=== PATIENT | male | born 1975 | race Caucasian/White ===

== ENCOUNTER → 2018-03-05 10:25 | Outpatient (CLI) | payer OTHER, SELFPAY ==
--- NOTE | 2018-03-05 10:27 | US_ITS ---
STUDY: ABDOMINAL ULTRASOUND REASON FOR EXAM: Male, 42 years old. Right flank pain. TECHNIQUE: Transabdominal ultrasound was performed with real-time and static alfonso scale imaging. TECHNICAL QUALITY: Adequate. COMPARISON: None. FINDINGS: Liver: The liver measures 18.1 cm. There is increased echogenicity consistent with fatty infiltration. The bile ducts are within normal limits. There is hepatic color flow. The direction of portal flow is hepatopetal. There is no demonstrated mass lesion. Portal vein measurement: Gallbladder: Normal distended gallbladder. The gallbladder wall measures 3.0 mm. There is a negative sonographic Robles's sign. There is no pericholecystic fluid. There are no gallstones. Common Bile Duct (C.B.D.): The common bile duct measures 3.0 mm. Pancreas: Normal size of the head, body and tail of the pancreas. There is normal echogenicity of the pancreas. There is no demonstrated pancreatic mass or cyst. Spleen: Normal size of the spleen. The spleen measures 11.3 cm x 4.7 cm x 5.3 cm. Right Kidney: Normal size of the right kidney. The right kidney measures 14.8 cm x 6.2 cm x 6.4 cm. Normal renal cortex. The right cortex measures 2.4 cm. There is no demonstrated renal mass or cyst. There is no right hydronephrosis. Left Kidney: The left kidney is not visualized due to dilatation. Aorta: Unremarkable I.V.C.: The IVC is patent. There is no ascites. The bladder is unremarkable. US/Abdomen Complete IMPRESSION: Fatty infiltration of the liver. Status post left nephrectomy. Electronically Signed: Devante Tapia MD at 14:48 EDT Tel [phone], Service support ,
== END ==
PROVIDERS: Family Provider Internal Medicine; PCP Internal Medicine; Visit Provider Nurse Practitioner
DX: M54.9 Dorsalgia, unspecified (principal)
CPT/HCPCS: 76700

== ENCOUNTER 2018-06-29 17:15 | Emergency (ER) | payer OTHER, SELFPAY ==
[2018-06-29 17:16] VITALS: BP 149/105; PULSE 79; RESP 16; TEMP 36.4; O2SAT 98; BMI 25.2
--- NOTE | 2018-06-29 17:42 | ED.VISSUMM ---
- ER Visit Summary Date of Service: 06/29/18 Chief Complaint: Right small finger laceration History of Present Illness: The patient is a 42 M past medical history of hypertension and depression. He also previously donated a kidney to his father. Patient states within the last 1-2 hours he was open his thermos and the lid lacerated his right small finger. He states his tetanus is up-to-date. He is right-hand dominant. Denies other complaints. Physical Examination: Well-appearing middle-age male. Vital signs are stable and afebrile. H EENT exam unremarkable. Neck nontender. Lungs clear to auscultation. Heart regular rhythm no murmur. Abdomen soft nontender. He is moving all 4 extremities. Neurovascularly intact. Specifically the right small finger on the dorsum of the PIP joint there is a flap laceration. Mild oozing of blood. Finger appears to be neurovascularly intact with normal cap refill and touch sensation distally. He has full flexion-extension against resistance of the right small finger. There is no gross bony deformity. No foreign body. No signs of infection. Test Results: None Emergency Department Course and Treatment: Right small finger flap laceration repair. Digital block performed using lidocaine. Once proper anesthetic was obtained the wound was cleaned using Shur-Clens copiously irrigated and explored. Closed using simple interrupted 4-0 x 4 Ethilon sutures. Proper hemostasis and wound closure was obtained. Patient tolerated procedure well. Bacitracin and bandage was applied. Treatment Plan: Wound care. Suture removal in 10 days. Return if any signs of infection or problems. Disposition: Discharged Impression: Right small finger flap laceration with ER repair 2.5 cm Digital nerve block This note was generated with [employer] dictation software. It may contain incorrect words, spelling, and punctuation that were not noted in review of the chart prior to signing ED Disposition - Plan for ED Patient: Disposition: Home or Assisted Living Chief Complaint: Laceration Instructions: ED Laceration Hand Referrals: Svetlana Neri DO [STAFF PHYSICIAN] - 10 Day for suture removal Additional Instructions: Keep the wound dry and clean. Apply antibiotic ointment daily. Stitches out in 10 days. Return if any signs of infection.
--- NOTE | 2018-06-29 17:45 | ED.DEP ---
ED Disposition - Plan for ED Patient: Disposition: Home or Assisted Living Chief Complaint: Laceration Instructions: ED Laceration Hand Referrals: Svetlana Neri DO [Primary Care Provider] - 10 Day for suture removal Additional Instructions: Keep the wound dry and clean. Apply antibiotic ointment daily. Stitches out in 10 days. Return if any signs of infection.
--- NOTE | 2018-06-29 20:18 | ED.DEP ---
ED Disposition - Plan for ED Patient: Disposition: Home or Assisted Living Chief Complaint: Laceration Instructions: ED Laceration Hand Referrals: Svetlana Neri DO [STAFF PHYSICIAN] - 10 Day for suture removal Additional Instructions: Keep the wound dry and clean. Apply antibiotic ointment daily. Stitches out in 10 days. Return if any signs of infection.
== END 2018-06-29 20:28 | disposition home or self-care (01) ==
PROVIDERS: Emergency Provider Emergency Medicine; Family Provider Nurse Practitioner; PCP Nurse Practitioner
DX: S61.216A Laceration without foreign body of right little finger without damage to nail, initial encounter (principal); W26.8XXA Contact with other sharp object(s), not elsewhere classified, initial encounter; Y93.9 Activity, unspecified; Y92.89 Other specified places as the place of occurrence of the external cause; Y99.9 Unspecified external cause status; I10 Essential (primary) hypertension
CPT/HCPCS: 12001; 99284

== ENCOUNTER 2019-05-29 21:45 | Emergency (ER) | payer OTHER, SELFPAY ==
[2019-05-29 21:46] VITALS: BP 150/91; PULSE 96; RESP 16; TEMP 36.6; O2SAT 98; BMI 24.5
--- NOTE | 2019-05-29 22:09 | ED.VIS.UPPEX ---
History of Present Illness Chief Complaint: Upper Extremity Injury Informant: Patient Occurred: Today Onset: Today Context: - - awoke w/ sx 1-2 hrs ago Timing: Continuous Quality of Pain: Aching Location: points to entire left shoulder Current Severity: Severe Maximum Severity: Severe Worsened by: movement in any direction Relieved by: remaining still w/ arm at side Associated Symptoms: Loss of Funtion. Negative for: Parasthesia, Weakness Narrative: Patient states he was drinking heavily today and took a nap, waking up tonight with severe left shoulder pain. When asked if he fell or injured himself earlier he states I have no idea I was so drunk. He denies any numbness into his fingers or pain elsewhere. He is healthy otherwise. Past Medical History - Allergies and Home Meds Allergies/Adverse Reactions: Allergies No Known Allergies Allergy (Verified 05/29/19 21:46) Primary Care Physician: Renard Hill MD [STAFF PHYSICIAN] - (1-2 weeks if not improved) Past Medical History: None Surgical History: no surgical history Lives: With Family Smoking Status: Unknown if ever smoked Alcohol: Occasional Review of Systems Cardiovascular: Denies: Chest pain, Palpitations Respiratory: Denies: Dyspnea, Cough Gastrointestinal: Denies: Abdominal pain, Nausea, Vomiting Musculoskeletal: Reports: Extremity Pain. Denies: Swelling Neurological: Denies: Weakness, Numbness Physical Exam Vital Signs/Narrative: Vital Signs Temp Pulse Resp BP Pulse Ox 05/29/19 21:46 97.9 F 96 16 150/91 H 98 General: Well nourished, Well developed Head: Normocephalic, Atraumatic ENT: No Trauma, Moist Mucous Membranes Neck: Nontender, Full ROM Back: Nontender. Negative for: Spinal Tenderness Extremeties: Good short arc range of motion with left shoulder, if he flexes his upper arm forward, he has to stop at around 30 degrees, he states if I hold his arm there for him, the pain is much less than if he holds it there himself. The only area of tenderness is at the AC joint. There is no deformity. No subacromial or anterior bicipital head tenderness. Nontender at the scapular spine. No asymmetry when compared with the right shoulder, he does not appear grossly dislocated. No tenderness in the proximal humerus. Skin: Normal color, No rash, No Trauma Neurological: Alert, Oriented x3, Cranial nerves II-XII grossly intact, Normal Strength, Normal Sensation Psychological: Normal affect, Normal Mood Diagnostic/Tx/Re-eval Clinical Impression(s) from Imaging Studies Shoulder X-Ray 05/29/19 22:23 IMPRESSION: A normal left glenohumeral joint. Osteophytic spurring on the undersurface of the left acromioclavicular joint of the left shoulder. at 2249 Reported and signed by: Percy Harman MD Electronically Signed: Percy Harman MD at 22:47 EDT Tel , Service support , - Medical Decision Making Shoulder x-rays do not show any acute abnormality. He is not dislocated nor does he have any radiographically visible fracture. Since his point of maximal tenderness is clearly at the AC joint and it appears unremarkable, I suspect he probably injured it and sprained it. Treatment is supportive care with a sling, anti-inflammatories and follow-up. He was given anti-inflammatories and a sling here as well as a dose of Ultram, I will give him a prescription for both medicines and follow-up. OARRS checked and negative. ED Disposition - Plan for ED Patient: Disposition: Home or Assisted Living Diagnosis: Sprain of left acromioclavicular joint, initial encounter Instructions: Ac Joint Sprain, Sling Prescriptions: Naproxen [Naprosyn] 500 mg PO BID PRN #20 tab Prescription Printed traMADol [Ultram] 50 mg PO Q4H PRN PRN 2 Days #10 tab PRN Reason: Pain Prescription Printed Referrals: Renard Hill MD [STAFF PHYSICIAN] - (1-2 weeks if not improved)
--- NOTE | 2019-05-29 22:23 | RAD_ITS ---
HISTORY: PAIN, NKI Exam:Left Shoulder COMPARISON: None FINDINGS: # of images incl. paperwork: 4 XR Shoulder for Views: The humeral head is well-positioned within the glenoid fossa. No fracture or subluxation. The acromioclavicular joint is arthritic with osteophytic spurring extending inferior to be lateral aspect of the clavicle and the medial aspect of the acromion. The adjacent chest is unremarkable. RAD/Shoulder min 2 Views IMPRESSION: A normal left glenohumeral joint. Osteophytic spurring on the undersurface of the left acromioclavicular joint of the left shoulder. at 2885 Reported and signed by: Percy Harman MD Electronically Signed: Percy Harman MD at 22:47 EDT Tel , Service support ,
[2019-05-29] MEDS: Ketorolac 60 MG/2 ML Vial IM (22:25)
[2019-05-29] MEDS: traMADol 50 MG Tablet PO (22:25)
[2019-05-29 23:14] VITALS: BP 134/94; PULSE 90; RESP 15; O2SAT 96
== END 2019-05-29 23:15 | disposition home or self-care (01) ==
PROVIDERS: Emergency Provider Emergency Medicine; Family Provider Nurse Practitioner; PCP Nurse Practitioner
DX: S43.52XA Sprain of left acromioclavicular joint, initial encounter (principal); X58.XXXA Exposure to other specified factors, initial encounter; Y92.9 Unspecified place or not applicable; Y99.9 Unspecified external cause status; F10.10 Alcohol abuse, uncomplicated; Y90.9 Presence of alcohol in blood, level not specified
CPT/HCPCS: 73030; 99283

== ENCOUNTER 2021-12-05 16:06 | Outpatient (CLI) | payer BC, SELFPAY ==
[2021-12-05 18:35] LABS: AST(SGOT) 22 U/L (15-37); Alanine Aminotransfer ALT/SGPT 36 U/L (16-61); Albumin, Serum 3.9 g/dL (3.2-5.0); Alkaline Phosphatase 99 U/L (45-117); Anion Gap 7 (5-15); BUN 12 mg/dL (7-18); BUN/Creat Ratio 13.9 RATIO (10-20); Calcium,Total 9.5 mg/dL (8.5-10.1); Chloride 103 mmol/L (98-107); Creatinine, Serum 0.86 mg/dL (0.70-1.30); EST Glomerular Filtration Rate 101 mL/min (>60); Est Glom Filt Rate - Afr Amer 122 mL/min (>60); Globulin 3.8 g/dL (2.2-4.2); Glucose 77 mg/dL (74-106); Potassium 3.3 mmol/L (3.5-5.1); Protein, Total 7.7 g/dL (6.4-8.2); Sodium Level 139 mmol/L (136-145)
== END 2021-12-05 23:59 | disposition short-term general hospital (02) ==
LOC: MFPLAB 16:10
PROVIDERS: PCP Nurse Practitioner; Referring Provider Nurse Practitioner; Visit Provider Physician Assistant
DX: L08.9 Local infection of the skin and subcutaneous tissue, unspecified (principal)
CPT/HCPCS: 36415; 80053

== ENCOUNTER 2023-03-02 14:12 | Observation (INO) | payer BC, SELFPAY ==
[2023-03-02] VITALS (10 sets, daily range): BP systolic 152–184; BP diastolic 101–124; PULSE 72–94; RESP 14–17; TEMP 36.1–36.8; O2SAT 95–99; BMI 25.7; BMI 25.9; BMI 24.6
--- NOTE | 2023-03-02 14:18 | ED.RN ---
DISCUSSED PT WITH DR. DEUTSCH.
--- NOTE | 2023-03-02 14:29 | CT_ITS ---
STUDY: CTA HEAD AND NECK WITH CONTRAST REASON FOR EXAM: Male, 47 years old. Neuro deficit, acute, stroke suspected RADIATION DOSAGE (If Supplied By Facility): CTDIvol = ( 27.89 ) mGy, DLP = ( 1482.2 ) mGycm TECHNIQUE: CT angiography was performed with a multi-detector CT scanner. Data acquisition was obtained from the skull base through the vertex following intravenous administration of IV 100mL Isovue-370. MIP images were reconstructed from the axial data set. Post-processing of the angiographic images was performed, with multiplanar reformation and 3D reconstruction. Individualized dose optimization techniques were used for this CT. COMPARISON: CT of the head, March 02, 2023 FINDINGS: Normal bilateral petrous carotid arteries. Normal right cavernous carotid artery with a normal supraclinoid bifurcation. Normal left cavernous carotid artery with a normal supraclinoid bifurcation. Normal right A1 segments of the anterior cerebral artery. Normal left A1 segments of the anterior cerebral artery. Normal intact anterior communicating artery (ACOM). Normal bilateral A2 segments of the anterior cerebral arteries. Normal right M1 and M2 segments of the middle cerebral arteries, with a normal M1 bifurcation. Normal left M1 and M2 segments of the middle cerebral arteries, with a normal M1 bifurcation. Normal right posterior communicating artery (PCOM). Normal left posterior communicating artery (PCOM). Normal bilateral vertebral arteries. Normal basilar artery with a normal basilar bifurcation. The visualized bilateral superior cerebellar (SCA) arteries are normal. Normal bilateral P1, P2 and visualized P3 segments of the posterior cerebral arteries. There is no demonstrated aneurysm of the [place] of [place]. There is no demonstrated abnormality of the visualized brain. AORTIC ARCH: Normal visualized aortic arch. Normal origins of the brachiocephalic, left common carotid, and left subclavian arteries. RIGHT CAROTID ARTERIES: Normal right common carotid artery (CCA). Normal right common carotid bulb. Normal origin of the right internal carotid (ICA) artery without a hemodynamically significant stenosis. Normal visualized cervical portion of the right internal carotid artery. Normal origin of the right external carotid artery (ECA). LEFT CAROTID ARTERIES: Normal left common carotid artery (CCA). Normal left common carotid bulb. Normal origin of the left internal carotid (ICA) artery without a hemodynamically significant stenosis. Normal visualized cervical portion of the left internal carotid artery. Normal origin of the left external carotid artery (ECA). VERTEBRAL ARTERIES: Normal bilateral vertebral arteries. IMPRESSION: Normal CTA Head and neck with contrast. N.B. : The above Results were Read Back by Abdi Burkett DO to keshav Serrano MD, and understanding confirmed on 03/02/2023 16:42:29 (ET). Electronically Signed: Abdi Burkett DO at 16:28 EDT Reading Location ID and State: [facility] / [employer] Tel [phone], Service support , STUDY: CT HEAD STROKE PROTOCOL W/O CONTRAST INJECTION REASON FOR EXAM: Male, 47 years old. Neuro deficit, acute, stroke suspected TECHNIQUE: Transaxial CT imaging of the brain was performed without administration of intravenous contrast material. Individualized dose optimization techniques were used for this CT. COMPARISON: CTA of the head and neck, March 02, 2023. FINDINGS: Normal soft tissue structures. Normal calvarium. Normal size ventricles and extra-axial spaces for the patient''s age. Normal white matter tracts of the cerebral hemispheres. Normal basal ganglia and thalami. Normal brainstem. Normal cerebellum. There is no intracranial hemorrhage. There are no findings of an acute ischemic infarction. Normal visualized paranasal sinuses. ASPECT score: 10 CT/STROKE CTA Head AND Neck W/Con IMPRESSION: Normal unenhanced CT scan of the brain. N.B. : The above Results were Read Back by Abdi Burkett DO to keshav Serrano MD, and understanding confirmed on 03/02/2023 16:42:29 (ET). Electronically Signed: Abdi Burkett DO at 16:44 EDT Reading Location ID and State: [facility] / [place] Tel [phone], Service support ,
--- NOTE | 2023-03-02 14:29 | EKG12_ITS ---
Test Reason : NEURO Blood Pressure : / mmHG Vent. Rate : 080 BPM Atrial Rate : 080 BPM P-R Int : 156 ms QRS Dur : 092 ms QT Int : 356 ms P-R-T Axes : 035 021 022 degrees QTc Int : 410 ms Normal sinus rhythm Normal ECG Confirmed by CHANNING SKELTON, MARQUES ([id number]), society editor SRINIVAS KEEN ([id number]) on 03/04/2023 9:54:09 AM Referred By: Confirmed By:ROSELYN SNELL MD
--- NOTE | 2023-03-02 14:31 | ED.VIS.STROK ---
HPI History of Present Illness Chief Complaint: Neuro S/Sx Narrative Narrative: 47-year-old male presenting with weakness in the right leg which started yesterday. He was about 1700. Patient states he came home from doing his laundry and noticed he was having trouble walking. He states he has having to kick his foot forward to walk. He did not fall. Denies any trauma. He has no numbness or tingling. He is having trouble dorsiflexing his right foot plantarflexion is okay. Patient has a history of hypertension he has not been on his valsartan for a long time. His blood pressure is elevated. He thinks this might have something to do with that as well. He denies headache, blurred vision, slurred speech, facial droop, paresthesias. He is not having chest pain or shortness of breath. PFSH PFS Medical History (Updated 03/02/23 @ 17:[address] Kait Kovacs MD) Anxiety and depression ETOH abuse HTN (hypertension) Home Medications valsartan 160 mg tablet 320 mg PO DAILY 06/29/18 [History Last Taken 09/30/22] amlodipine 10 mg tablet 10 mg PO DAILY HTN 03/02/23 [History Last Taken 09/30/22] Allergy/AdvReac Type Severity Reaction Status Date / Time No Known Allergies Allergy Verified 03/02/23 14:15 Family History (Updated 03/02/23 @ 17:[address] Kait Kovacs MD) Father Kidney disease Hypertension CAD (coronary artery disease) Mother CAD (coronary artery disease) Hypertension Diabetes Surgical History H/O kidney removal Social History (Updated 03/02/23 @ 17:[address] Kait Kovacs MD) Smoking Status: Never smoker alcohol intake: current alcohol intake frequency: 3 or more drinks per day Alcohol type: beer details: 6-8 beers daily. substance use type: does not use ROS ROS ED Constitutional Constitutional ED: Denies chills or fever(s) Eyes Eyes: Denies change in vision or diplopia ENT ENT ED: Denies rhinorrhea or sore throat Cardiovascular Cardiovascular: Denies chest pain or palpitations Respiratory/Chest Respiratory/Chest: Denies cough or dyspnea Gastrointestinal Gastrointestinal: Denies abdominal pain Genitourinary Genitourinary ED: Denies dysuria or hematuria Musculoskeletal Musculoskeletal: Denies arthralgias or myalgias Integumentary Denies abscess Neurologic Neurologic: Reports other Details: Right leg weakness ; Denies headache(s) or paresthesias Psychiatric Psychiatric: Denies anxiety or depression Endocrine Endocrinology: Denies polydipsia or polyphagia EXAM Physical Exam Const Vital Signs: 03/02/23 14:16 03/02/23 14:32 03/02/23 14:32 Temperature 97 F L Temperature Source Temporal Pulse Rate 94 Respiratory Rate 14 Respiratory Effort Normal Non-Labored Blood Pressure 184/124 H Blood Pressure Mean 144 Pulse Ox 96 Oxygen Delivery Method Room Air Room Air 03/02/23 14:45 03/02/23 14:59 03/02/23 15:29 Temperature Temperature Source Pulse Rate 87 79 Respiratory Rate 15 16 Respiratory Effort Blood Pressure 165/118 H 161/106 H 161/106 H Blood Pressure Mean 133 124 124 Pulse Ox 95 95 Oxygen Delivery Method Room Air Room Air 03/02/23 15:59 03/02/23 16:12 Temperature Temperature Source Pulse Rate 78 78 Respiratory Rate 16 14 Respiratory Effort Blood Pressure 153/112 H 160/114 H Blood Pressure Mean 125 129 Pulse Ox 96 97 Oxygen Delivery Method Room Air Room Air Positive well nourished General Appearance ED: NAD HEENT Reports moist mucous membranes Eyes PERRL and EOMs intact bilaterally Chest Wall inspection of chest normal and palpation of chest normal Resp normal respiratory effort and clear to auscultation bilaterally Auscultation: Negative for rales, rhonchi or wheezes GI normal to inspection, nondistended, normoactive bowel sounds Neuro oriented x3 and CN's II-XII intact bilaterally Fritz Coma Scale: document GCS findings Spontaneous Obeys Commands Oriented 15 Sensorium / Orientation: alert Motor Exam: strength 5/5 throughout NIHSS NIHSS Initial: 1a Level of Consciousness: 0 1b LOC Questions (Score 2 if aphasic/stupor): 0 1c LOC Commands (Only score 1st attempt): 0 2 Best Gaze (If aphasic, use reflexive mvmts.): 0 3 Visual: 0 4 Facial Palsy: 0 5 Motor Arm Right (UN = amputation/fusion): 0 5 Motor Arm Left: 0 6 Motor Leg Right: 0 6 Motor Leg Left: 0 7 Limb ataxia (Only + if out of proportion): 0 8 Sensory (Aphasia/stupor=0 or 1, coma=2): 0 9 Best Language: 0 10 Dysarthria (mute, coma=2, intubated=UN): 0 11 Extinction and Inattention (only scored if +): 0 Total Score: 0 MDM MDM MDM Narrative Medical decision making narrative: 47-year-old male with leg weakness. On exam his only weakness is in dorsiflexion of the right foot. Plantarflexion of both feet is symmetric. He has no drift. Otherwise motor and sensation are intact. No facial droop. Slurred speech. He is alert and awake and not confused. He is noted to be hypertensive. He states he has not been on his valsartan for a long time. He does not have a headache, visual changes. Differential at this point includes stroke, intracranial hemorrhage, hypertensive emergency/urgency, foot drop. Onset was 5pm yesterday she was outside the window for tPA. NIH stroke scale score of 0. CBC to assess white blood cell count, hemoglobin, platelets, differential. Patient studies as well. BMP to assess renal function, electrolytes, glucose, anion gap. EKG and high-sensitivity troponin will be added as well. EKG on my interpretation shows a sinus rhythm at 80 bpm without sign of ischemic change or dysrhythmia. CBC unremarkable. Coagulation studies unremarkable. BMP shows slight hyponatremia with sodium 128. Potassium slightly low at 3.4. Renal function is normal. CT brain and CTA negative for acute infarct. No LVO. Chest x-ray on my interpretation shows no acute cardiopulmonary process. Radiologist are present and agrees. Given patient's symptoms I discussed with the hospitalist for admission. Impression: 1. Strokelike symptom Lab Data Labs: Laboratory Results - last 24 hr 03/02/23 03/02/23 03/02/23 14:30 14:30 14:30 WBC 8.9 RBC 4.53 L Hgb 14.1 Hct 40.6 MCV 89.6 MCH 31.1 MCHC 34.7 RDW Std Deviation 37.8 RDW Coeff of Tima 11.6 Plt Count 296 MPV 9.4 Immature Gran % (Auto) 1.800 H Neut % (Auto) 73.1 H Lymph % (Auto) 14.3 L Sequoyah % (Auto) 9.3 Eos % (Auto) 0.8 Baso % (Auto) 0.7 Absolute Neuts (auto) 6.5 Absolute Lymphs (auto) 1.28 Nucleated RBC % 0 PT 13.2 INR 1.0 APTT 30.8 Sodium 128 L Potassium 3.4 L Chloride 95 L Carbon Dioxide 26.0 Anion Gap 7 BUN 8 Creatinine 0.84 Estim Creat Clear Calc 119.33 Est GFR (MDRD) Af Amer 126 Est GFR (MDRD) Non-Af 104 BUN/Creatinine Ratio 9.5 L Glucose 100 Calcium 9.0 Troponin I High Sens 5 Radiography Diagnostic Testing: Clinical Impression(s) from Imaging Studies Head/Neck CTA 03/02/23 14:29 IMPRESSION: Normal unenhanced CT scan of the brain. N.B. : The above Results were Read Back by Abdi Burkett DO to keshav Serrano MD, and understanding confirmed on 03/02/2023 16:42:29 (ET). Electronically Signed: Abdi Burkett DO at 16:44 EDT Reading Location ID and State: [employer] / [place] Tel [phone], Service support , ADDENDUM: 03/02/23 1651 IMPRESSION: Normal unenhanced CT scan of the brain. Electronically Signed: Abdi Burkett DO at 16:43 EDT Reading Location ID and State: [employer] / [place] Tel [phone], Service support , N.B. : The above Results were Read Back by Abdi Burkett DO to keshav Serrano MD, and understanding confirmed on 03/02/2023 16:42:29 (ET). ADDENDUM: 03/02/23 1652 IMPRESSION: Normal unenhanced CT scan of the brain. N.B. : The above Results were Read Back by Abdi Burkett DO to keshav Serrano MD, and understanding confirmed on 03/02/2023 16:42:29 (ET). Electronically Signed: Abdi Burkett DO at 16:44 EDT Reading Location ID and State: [employer] / [employer] Tel [phone], Service support , Chest X-Ray 03/02/23 15:30 IMPRESSION: Hyperinflation. No acute abnormality is seen. Electronically Signed: Devante Tapia MD at 15:46 EDT , Discharge Plan Disposition Disposition: Acute Care Hospital [facility] Discharge Date/Time: 03/02/23 17:47
--- NOTE | 2023-03-02 14:36 | ED.RN ---
PER DR GIBBS, NO STROKE ALERT AT THIS TIME
[2023-03-02 14:49] LABS: Absolute Lymphocyte Count 1.28 X10^3/uL (0.83-4.51); Absolute Neutrophil Count 6.5 X10^3/uL (2.0-7.7); Basophil# 0.06 X10^3/uL; Basophil% 0.7 % (0-1); Eosinophil# 0.07 X10^3/uL; Eosinophils% 0.8 % (0-5); Hematocrit 40.6 % (40-54); Hemoglobin 14.1 g/dL (13.0-16.5); Lymphocyte # 1.28 X10^3/ul (0.83-4.51); Lymphocyte % 14.3 % (19-41); Mean Corp Hgb Conc 34.7 g/dL (32-36); Mean Corpuscular Hgb 31.1 pg (27.0-32.0); Mean Corpuscular Volume 89.6 fL (80-94); Mean Platelet Vol. 9.4 fl (6.2-12.0); Monocyte# 0.83 X10^3/uL; Monocyte% 9.3 % (0-10); NRBC Flagged by Analyzer 0 % (0-5); Neutrophil # 6.53 X10^3/uL (2.7-7.7); Neutrophil % 73.1 % (47-70); Platelet Count 296 K/mm3 (150-450); RBC Distribution Width CV 11.6 % (11.6-14.6); RBC Distribution Width SD 37.8 fl (35.1-43.9); Red Blood Count 4.53 M/mm3 (4.6-6.2); White Blood Count 8.9 K/mm3 (4.4-11.0)
[2023-03-02 15:00] LABS: Partial Thromboplast Time 30.8 Seconds (24.1-36.2); Prothrombin Time (Protime)PT. 13.2 SECONDS (11.7-14.9)
[2023-03-02 15:04] LABS: Anion Gap 7 (5-15); BUN 8 mg/dL (7-18); BUN/Creat Ratio 9.5 RATIO (10-20); Chloride 95 mmol/L (98-107); Creatinine, Serum 0.84 mg/dL (0.70-1.30); EST Glomerular Filtration Rate 104 mL/min (>60); Est Glom Filt Rate - Afr Amer 126 mL/min (>60); Estimated Creatinine Clearance 119.33 ml/min; Glucose 100 mg/dL (74-106); Potassium 3.4 mmol/L (3.5-5.1); Sodium Level 128 mmol/L (136-145); Troponin-I HS 5 pg/mL (3.0-78.0)
--- NOTE | 2023-03-02 15:30 | RAD_ITS ---
STUDY: X-RAY CHEST REASON FOR EXAM: Male, 47 years old. Neuro deficit, acute, stroke suspected TECHNIQUE: Single AP portable view of the chest. COMPARISON: None. FINDINGS: EKG electrodes are seen. Hyperinflation. Scattered calcified granulomas. The lungs are clear. There is no demonstrated pleural abnormality. Normal size heart. Normal mediastinum and rachel. Normal visualized pulmonary arteries. Normal visualized aortic arch and descending thoracic aorta. Normal visualized thoracic spine. Normal visualized ribs, clavicles, and shoulders. There is no demonstrated abnormality of the visualized soft tissue structures of the upper abdomen. RAD/Chest 1 View IMPRESSION: Hyperinflation. No acute abnormality is seen. Electronically Signed: Devante Tapia MD at 15:46 EDT ,
--- NOTE | 2023-03-02 17:03 | HP.PCM_ITS ---
HPI - General General Date of Admission: 03/02/23 Date of Service: 03/02/23 Chief Complaint: Transient RLE weakness, debility. HPI Narrative The patient is a 47 y/o M w/ PMHx: Hx single kidney s/p donation to his father, HTN, Depression and Anxiety, EtOH abuse who presents to the [facility] ED on 03/02/23 with history of onset at approximately 5 PM on day prior to day of presentation difficulty utilizing his right leg and reporting that he has to pick it up to get it to move although he reportedly ambulated himself into the ED and into triage without issue without complaints of paresthesias or other fical deficits prompting ED evaluation. In the ED NIH stroke scale 0 upon initial ED evaluation. Patient denies any associated headache or chest discomfort with his current presentation. He does report injuring his right leg 2 days prior, hi tting the anterior chin on a machine of note. Upon ED arrival he notes only residual R foot drop. Work-up in the ED included T97, heart rate 94, BP initially 184/124 with most recent repeat 153/112, respiratory rate 14, 96% on room air, CBC with WC 8.9, hemoglobin 14.1, platelet 296 with increased immature granulocytes, unremarkable coags, BMP with sodium 128, potassium 3.4, chloride 95, troponin 5, chest x-ray with hyperinflation with no acute cardiopulmonary findings, CT of the brain with no acute intracranial finding, CTA head and neck both unremarkable, EKG sinus rhythm with no acute evidence of ischemia. In the ED patient administered FS ASA. [facility] Medical History (Updated 03/02/23 @ 17:[address] Kait Kovacs MD) Anxiety and depression ETOH abuse HTN (hypertension) Home Medications valsartan 160 mg tablet 320 mg PO DAILY 06/29/18 [History Last Taken 09/30/22] amlodipine 10 mg tablet 10 mg PO DAILY HTN 03/02/23 [History Last Taken 09/30/22] Allergy/AdvReac Type Severity Reaction Status Date / Time No Known Allergies Allergy Verified 03/02/23 14:15 Family History (Updated 03/02/23 @ 17:[address] Kait Kovacs MD) Father Kidney disease Hypertension CAD (coronary artery disease) Mother CAD (coronary artery disease) Hypertension Diabetes Surgical History H/O kidney removal Social History (Updated 03/02/23 @ 17:[address] Kait Kovacs MD) Smoking Status: Never smoker alcohol intake: current alcohol intake frequency: 3 or more drinks per day Alcohol type: beer details: 6-8 beers daily. substance use type: does not use ROS ROS Narrative Admission Review of Systems: CONSTITUTIONAL: No weight loss, fever, chills, + weakness or fatigue. HEENT: Eyes: No visual loss, blurred vision, double vision or yellow sclerae. Ears, Nose, Throat: No hearing loss, sneezing, congestion, runny nose or sore th roat. SKIN: No rash or itching, lesions, wounds. CARDIOVASCULAR: No chest pain, chest pressure or chest discomfort, palpitations, edema, orthopnea, syncopal events. RESPIRATORY: No shortness of breath, cough or sputum, wheezing, hemoptysis. GASTROINTESTINAL: No anorexia, nausea, vomiting or diarrhea, abdominal pain, melena, BRBPR. GENITOURINARY: No dysuria, frequency, urgency or retention. NEUROLOGICAL: + RLE weakness-->foot drop right. No headache, dizziness, syncope, paralysis, ataxia, numbness or tingling in the extremities,change in bowel or bladder control, seizure. MUSCULOSKELETAL: + muscle, back pain, joint pain or stiffness. HEMATOLOGIC: No anemia, bleeding or bruising. LYMPHATICS: No enlarged nodes. No history of splenectomy. PSYCHIATRIC: + history of depression or anxiety. ENDOCRINOLOGIC: No reports of sweating, cold or heat intolerance. No polyuria or polydipsia. ALLERGIES: No history of asthma, hives, eczema or rhinitis. Vital Signs Vital Signs Vital Signs: 03/02/23 14:16 03/02/23 14:32 03/02/23 14:32 Temperature 97 F L Temperature Source Temporal Pulse Rate 94 Respiratory Rate 14 Respiratory Effort Normal Non-Labored Blood Pressure 184/124 H Blood Pressure Mean 144 Pulse Ox 96 Oxygen Delivery Method Room Air Room Air 03/02/23 14:45 03/02/23 14:59 03/02/23 15:29 Temperature Temperature Source Pulse Rate 87 79 Respiratory Rate 15 16 Respiratory Effort Blood Pressure 165/118 H 161/106 H 161/106 H Blood Pressure Mean 133 124 124 Pulse Ox 95 95 Oxygen Delivery Method Room Air Room Air 03/02/23 15:59 Temperature Temperature Source Pulse Rate 78 Respiratory Rate 16 Respiratory Effort Blood Pressure 153/112 H Blood Pressure Mean 125 Pulse Ox 96 Oxygen Delivery Method Room Air Weight Weight: 191 lb 2.252 oz Body Mass Index (BMI) 25.9 Physical Exam Narrative Physical Examination: General: Awake, alert, oriented x 3 and cooperative, seated upright in the ED bed in no apparent distress. Skin: Normal color, normal turgor, no icterus, no cyanosis. HEENT: AT/NC, EOMI, PERRLA, MMM, no carotid bruits or JVD noted. Lungs: CTA bilaterally, moderate effort, mild decrease BL bases, no rales, ronchi or wheezing. Heart: Regular rate and rhythm; no gallop, rub audible. Abdomen: Soft, NTTP, ND, normal BS, mild HM. Extremities: No cyanosis, clubbing, or edema, ongoing R foot drop/unable to dorsiflex. Neurological: Patient awake, alert, oriented as noted, cognitive function intact; pupils equally reactive to light and accommodation, cranial nerves grossly normal, moving all 4 extremities except ongoing R foot drop/unable to dorsiflex, sensation intake, no focal deficits otherwise, strength otherwise preserved, difficulty with HTS as expected RLE otherwise normal, FTN normal. Psychiatric: Affect appears normal, no acute evidence of depressive or anxiety f eelings. Results Lab / Micro Data Result Diagrams: 03/02/23 14:30 03/02/23 14:30 Labs: Laboratory Results - last 24 hr 03/02/23 14:30: WBC 8.9, RBC 4.53 L, Hgb 14.1, Hct 40.6, MCV 89.6, MCH 31.1, MCHC 34.7, RDW Std Deviation 37.8, RDW Coeff of Tima 11.6, Plt Count 296, MPV 9.4, Immature Gran % (Auto) 1.800 H, Neut % (Auto) 73.1 H, Lymph % (Auto) 14.3 L , [place] % (Auto) 9.3, Eos % (Auto) 0.8, Baso % (Auto) 0.7, Absolute Neuts (auto) 6.5, Absolute Lymphs (auto) 1.28, Nucleated RBC % 0 03/02/23 14:30: PT 13.2, INR 1.0, APTT 30.8 03/02/23 14:30: Sodium 128 L, Potassium 3.4 L, Chloride 95 L, Carbon Dioxide 26.0, Anion Gap 7, BUN 8, Creatinine 0.84, Estim Creat Clear Calc 119.33, Est GFR (MDRD) Af Amer 126, Est GFR (MDRD) Non-Af 104, BUN/Creatinine Ratio 9.5 L, Glucose 100, Calcium 9.0, Troponin I High Sens 5 Radiology Impression Head/Neck CTA 03/02/23 14:29 IMPRESSION: Normal unenhanced CT scan of the brain. N.B. : The above Results were Read Back by Abdi Burkett DO to keshav Serrano MD, and understanding confirmed on 03/02/2023 16:42:29 (ET). Electronically Signed: Abdi Burkett DO at 16:44 EDT Reading Location ID and State: [facility] / [place] Tel [phone], Service support , ADDENDUM: 03/02/23 1651 IMPRESSION: Normal unenhanced CT scan of the brain. Electronically Signed: Abdi Burkett DO at 16:43 EDT Reading Location ID and State: [employer] / [place] Tel [phone], Service support , N.B. : The above Results were Read Back by Abdi Burkett DO to keshav Serrano MD, and understanding confirmed on 03/02/2023 16:42:29 (ET). ADDENDUM: 03/02/23 1652 IMPRESSION: Normal unenhanced CT scan of the brain. N.B. : The above Results were Read Back by Abdi Burkett DO to keshav Serrano MD, and understanding confirmed on 03/02/2023 16:42:29 (ET). Electronically Signed: Abdi Burkett DO at 16:44 EDT Reading Location ID and State: [facility] / [place] Tel [phone], Service support , Chest X-Ray 03/02/23 15:30 IMPRESSION: Hyperinflation. No acute abnormality is seen. Electronically Signed: Devante Tapia MD at 15:46 EDT , Assessment & Plan Assessment/Plan (1) TIA (transient ischemic attack): PLAN: Plan The patient is a 47 y/o M w/ PMHx: Hx single kidney s/p donation to his father, HTN, Depression and Anxiety, ? EtOH abuse who presents to the [facility] ED on 03/02/23 with history of onset at approximately 5 PM on day prior to day of presentation difficulty utilizing his right leg and reporting that he has to pick it up to get it to move although he reportedly ambulated himself into the ED and into triage without issue. #1. Transient right lower extremity weakness with persistent issues dorsiflexion, lower suspicion for TIA/CVA, Suspect nerve damage with recent RLE Injury but still cannot explain worsened more pronounced initial description of R entire leg involvement: Will admit to PCU, will obtain MRI Brain with and without to be cautious given age and will also given foot drop residual obtain lumbar MRI, will obtain ECHO, PT/OT/Speech/Nutrition evaluation per protocol. Will allow permissive HTN, maintain on aspirin, add high-dose statin w/ AM FLP, fall precautions. TSH, magnesium, FLP, hemoglobin A1c requested. If no obvious findings on MRI would need to have PCP follow-up with potentially EMG and nerve conduction studies outpatient. #2. Hypokalemia: Admission K+ 3.4, magnesium also requested, supplementation given, repeat level in AM. #3. Hyponatremia, Suspected primarily secondary to EtOH abuse, although has been more normal range prior, possibly hypovolemic component: Admission sodium 128, prior baseline noted to be normal, will continue judicious hydration, obtain TSH, Osm, FeNa to further evaluation, repeat CMP in AM but again suspect EtOH related. #4. Hypertension, uncontrolled, off of his medication: BP uncontrolled upon presentation likely secondary to failure to continue to take his home valsartan regimen, temporarily holding home regimen given permissive hypertension as noted, parent agents per stroke protocol. #5. Anxiety and depression: We will continue patient on Wellbutrin regimen however would benefit from continued evaluation and therapy. #6. EtOH Abuse: Patient notes routine consumption of 6-8 beers per day. Will maintain on CIWA protocol, MVI, thiamine and folic acid. Patient notes intention of continued EtOH usage, magnesium and phosphorus levels requested. Case management consulted. #7. DVT protocol: Lovenox. #8. CODE STATUS: Full code. Admission Evaluation Time spent evaluating chart, patient history, patient evaluation, care planning and discussion with specialists: 60 minutes. Charges/Coding Visit Charges Inpatient E&M: 54308 Init Hosp L2
--- NOTE | 2023-03-02 17:17 | NURSING ---
PCU OBS WHITE STROKELINE SYMPTOMS
[2023-03-02] MEDS: Aspirin 325 MG Tablet PO (17:45)
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
[2023-03-02 17:52] LABS: AST(SGOT) 25 U/L (15-37); Alanine Aminotransfer ALT/SGPT 26 U/L (16-61); Albumin, Serum 3.8 g/dL (3.2-5.0); Alkaline Phosphatase 53 U/L (45-117); Bilirubin, Direct 0.15 mg/dL (0.00-0.30); Globulin 3.3 g/dL (2.2-4.2); Magnesium 1.4 mg/dL (1.6-2.6); Protein, Total 7.1 g/dL (6.4-8.2)
[2023-03-02] MEDS: Potassium Chloride Oral Tablet 20 MEQ 40 MEQ PO (18:27)
[2023-03-02] MEDS: 0.9% Normal Saline 1,000 ML 100 ML IV (18:29)
--- NOTE | 2023-03-02 18:43 | MRI_ITS ---
INDICATION: Right leg weakness and right footdrop EXAMINATION: MRI - MR Spine Lumbar W/O Contrast TECHNIQUE: Multiplanar and multisequence MR images of the lumbar spine. IV Contrast Dosage and Agent: None. COMPARISON: None. FINDINGS: VERTEBRAE: Vertebral body heights are preserved. No acute fracture or pathologic marrow replacement. VERTEBRAL ALIGNMENT: No spondylolisthesis. There is preservation of the normal lumbar lordosis. CORD: Normal position and signal intensity of the conus medullaris. L1/L2: Normal disc height and morphology. Normal spinal canal, lateral recesses and neuroforamina. L2/L3: Normal disc height and morphology. Normal spinal canal, lateral recesses and neuroforamina. L3/L4: Normal disc height and morphology. Normal spinal canal, lateral recesses and neuroforamina. L4/L5: Normal disc height, small high intensity zone in the posterior annulus. Normal spinal canal, lateral recesses and neuroforamina. L5/S1: Normal disc height and morphology. Normal spinal canal, lateral recesses and neuroforamina. SOFT TISSUES: Unremarkable. MRI/Spine Lumbar (Routine) IMPRESSION: Small radial annular tear at L4-5. No focal disc herniation or significant lumbar stenosis. Electronically Signed: Mal Sharma MD at 21:30 EDT ,
--- NOTE | 2023-03-02 19:13 | MRI_ITS ---
STUDY: MRI BRAIN WITHOUT CONTRAST REASON FOR EXAM: Male, 47 years old. Right leg weakness and right foot drop for one day TECHNIQUE: Multiplanar multisequence imaging of the brain was performed without the administration of intravenous contrast. COMPARISON: Noncontrast head CT 03/02/23 FINDINGS: The ventricles, cisterns, and sulci are within normal limits for patients age. There is no restricted diffusion to suggest acute ischemia or infarction. No succeptibility artifict to suggest intracranial hemorrhage or mineralization. Major intracranial signal voids are preserved. There is no midline shift, mass effect, or extra axial fluid collections are seen. No CP angle or IAC mass is seen. The orbits are unremarkable. The sella turcica and craniovertebral junction are within normal limits. Scattered paranasal sinus mucoperiosteal thickening. The mastoid air cells are clear. MRI/Brain without Contrast IMPRESSION: No intracranial hemorrhage, acute infarct, or space occupying lesion seen on this noncontrast MRI of the brain. Electronically Signed: Mal Sharma MD at 21:49 EDT ,
[2023-03-02] MEDS: Atorvastatin Calcium 80 MG Tablet PO (20:46)
[2023-03-02] MEDS: Acetaminophen 325 MG Tablet 650 MG PO (20:46)
[2023-03-02] MEDS: 0.9% Saline Lock 10 ML Syringe IV (20:47)
[2023-03-03 00:25] VITALS: BP 148/100; PULSE 73; RESP 17; TEMP 36.7; O2SAT 96
[2023-03-03 04:47] LABS: Absolute Lymphocyte Count 1.53 X10^3/uL (0.83-4.51); Absolute Neutrophil Count 4.7 X10^3/uL (2.0-7.7); Basophil# 0.05 X10^3/uL; Basophil% 0.7 % (0-1); Eosinophil# 0.17 X10^3/uL; Eosinophils% 2.4 % (0-5); Hematocrit 41.4 % (40-54); Hemoglobin 14.1 g/dL (13.0-16.5); Lymphocyte # 1.53 X10^3/ul (0.83-4.51); Lymphocyte % 21.5 % (19-41); Mean Corp Hgb Conc 34.1 g/dL (32-36); Mean Corpuscular Hgb 31.1 pg (27.0-32.0); Mean Corpuscular Volume 91.4 fL (80-94); Mean Platelet Vol. 9.4 fl (6.2-12.0); Monocyte# 0.63 X10^3/uL; Monocyte% 8.9 % (0-10); NRBC Flagged by Analyzer 0 % (0-5); Neutrophil # 4.69 X10^3/uL (2.7-7.7); Neutrophil % 66.1 % (47-70); Platelet Count 269 K/mm3 (150-450); RBC Distribution Width CV 11.7 % (11.6-14.6); RBC Distribution Width SD 39.5 fl (35.1-43.9); Red Blood Count 4.53 M/mm3 (4.6-6.2); White Blood Count 7.1 K/mm3 (4.4-11.0)
[2023-03-03 04:57] VITALS: BP 136/92; PULSE 75; RESP 15; TEMP 36.7; O2SAT 97
[2023-03-03 05:29] LABS: AST(SGOT) 21 U/L (15-37); Alanine Aminotransfer ALT/SGPT 27 U/L (16-61); Albumin, Serum 3.3 g/dL (3.2-5.0); Alkaline Phosphatase 44 U/L (45-117); Anion Gap 3 (5-15); BUN 9 mg/dL (7-18); BUN/Creat Ratio 11.8 RATIO (10-20); Calcium,Total 8.8 mg/dL (8.5-10.1); Chloride 106 mmol/L (98-107); Cholesterol 178 mg/dL (200); Creatinine, Serum 0.76 mg/dL (0.70-1.30); EST Glomerular Filtration Rate 116 mL/min (>60); Est Glom Filt Rate - Afr Amer 140 mL/min (>60); Estimated Creatinine Clearance 131.89 ml/min; Globulin 3.4 g/dL (2.2-4.2); Glucose 84 mg/dL (74-106); High Density Lipoprotein 96 mg/dL; Potassium 3.9 mmol/L (3.5-5.1); Protein, Total 6.7 g/dL (6.4-8.2); Sodium Level 136 mmol/L (136-145); Thyroid Stim Hormone (TSH) 3.11 uIU/mL (0.358-3.74); Triglycerides 72 mg/dL; Very Low Density Lipoprotein 14 mg/dL (5-40)
[2023-03-03 05:30] LABS: Osmolality, Urine 173 mOsm/KG
[2023-03-03 05:34] LABS: Urine Sodium 28 mmol/L (Not Establ.)
[2023-03-03] MEDS: 0.9% Normal Saline 1,000 ML 100 ML IV (06:57)
--- NOTE | 2023-03-03 07:46 | DS.PCM_ITS ---
Providers Date of Admission: 03/02/23 Date of Discharge: 03/03/23 Primary Care Physician: Rosette Primary Care Phys Reason For Visit: TIA Diagnosis Discharge Diagnosis (1) TIA (transient ischemic attack): Status: Acute Code(s): G45.9 - Transient cerebral ischemic attack, unspecified Medications at Discharge Home Medications amlodipine 10 mg tablet 10 mg PO DAILY HTN #60 tabs 03/03/23 aspirin 81 mg chewable tablet 81 mg PO BREAKFAST #60 tabs 03/03/23 valsartan 160 mg tablet 320 mg PO DAILY #120 tabs 03/03/23 Hospital Course Summary of Care Provided Minutes Spent on Discharge: 35 Hospital Course: Patient is a 47-year-old gentleman who presented with transient right lower extremity weakness 1. TIA ? Patient was placed on a monitored bed underwent subsequent evaluation with an MRI which was negative for acute CVA patient was discharged on antiplatelet 2. Hypertension - Blood pressure controlled, home medications continued with dose adjustment as needed 3. Chronic alcohol use ? Counseled on cessation 4. DVT prophylaxis ? SC Lovenox 5. Hypokalemia ? Corrected per protocol 6. Hypomagnesemia ? Corrected per protocol Physical Exam Narrative GENERAL: cooperative HEENT: Atraumatic; normocephalic EYES; Anicteric, Normal Conjunctiva NECK; supple, normal thyroid, RESPIRATORY: Diminished to auscultation CARDIOVASCULAR: Regular S1 S2, GI: soft, normoactive bowel sounds, : No Renal angle tenderness; EXTREMITIES: No edema, no clubbing, MUSCULOSKELETAL: no muscle wasting NEURO: Awake; no lateralizing signs. SKIN: No Rash PSYCH; Flat affect Weight / BMI Weight Weight: 82.5 kg Body Mass Index (BMI) 24.6 ABG / Lab / Microbiology Data Result Diagrams: 03/03/23 04:11 03/03/23 04:11 Laboratory: Laboratory Results - last 24 hr 03/02/23 14:30: WBC 8.9, RBC 4.53 L, Hgb 14.1, Hct 40.6, MCV 89.6, MCH 31.1, MCHC 34.7, RDW Std Deviation 37.8, RDW Coeff of Tima 11.6, Plt Count 296, MPV 9.4, Immature Gran % (Auto) 1.800 H, Neut % (Auto) 73.1 H, Lymph % (Auto) 14.3 L , [place] % (Auto) 9.3, Eos % (Auto) 0.8, Baso % (Auto) 0.7, Absolute Neuts (auto) 6.5, Absolute Lymphs (auto) 1.28, Nucleated RBC % 0 03/02/23 14:30: PT 13.2, INR 1.0, APTT 30.8 03/02/23 14:30: Sodium 128 L, Potassium 3.4 L, Chloride 95 L, Carbon Dioxide 26.0, Anion Gap 7, BUN 8, Creatinine 0.84, Estim Creat Clear Calc 119.33, Est GFR (MDRD) Af Amer 126, Est GFR (MDRD) Non-Af 104, BUN/Creatinine Ratio 9.5 L, Glucose 100, Calcium 9.0, Troponin I High Sens 5 03/02/23 17:08: Phosphorus 3.0, Magnesium 1.4 L, Total Bilirubin 0.40, Direct Bilirubin 0.15, AST 25, ALT 26, Alkaline Phosphatase 53, Total Protein 7.1, Albumin 3.8, Globulin 3.3 03/03/23 04:11: WBC 7.1, RBC 4.53 L, Hgb 14.1, Hct 41.4, MCV 91.4, MCH 31.1, MCHC 34.1, RDW Std Deviation 39.5, RDW Coeff of Tima 11.7, Plt Count 269, MPV 9.4, Immature Gran % (Auto) 0.400, Neut % (Auto) 66.1, Lymph % (Auto) 21.5, [place] % (Auto) 8.9, Eos % (Auto) 2.4, Baso % (Auto) 0.7, Absolute Neuts (auto) 4.7, Absolute Lymphs (auto) 1.53, Nucleated RBC % 0 03/03/23 04:11: Sodium 136, Potassium 3.9, Chloride 106, Carbon Dioxide 27.0, Anion Gap 3 L, BUN 9, Creatinine 0.76, Estim Creat Clear Calc 131.89, Est GFR (MDRD) Af Amer 140, Est GFR (MDRD) Non-Af 116, BUN/Creatinine Ratio 11.8, Glucose 84, Calcium 8.8, Total Bilirubin 0.50, AST 21, ALT 27, Alkaline Phosphatase 44 L, Total Protein 6.7, Albumin 3.3, Globulin 3.4, Albumin/Globulin Ratio 1.0, Triglycerides 72, Cholesterol 178, LDL Cholesterol 68, VLDL Cholesterol 14, HDL Cholesterol 96, TSH 3.11 03/03/23 04:50: Urine Osmolality 173, Ur Random Sodium 28, Urine Creatinine 34.70 Radiography Diagnostic Testing: Radiology Impression Head/Neck CTA 03/02/23 14:29 IMPRESSION: Normal unenhanced CT scan of the brain. N.B. : The above Results were Read Back by Abdi Burkett DO to keshav Serrano MD, and understanding confirmed on 03/02/2023 16:42:29 (ET). Electronically Signed: Abdi Burkett DO at 16:44 EDT Reading Location ID and State: [facility] / [place] Tel [phone], Service support , ADDENDUM: 03/02/23 165 IMPRESSION: Normal unenhanced CT scan of the brain. Electronically Signed: Abdi Burkett DO at 16:43 EDT Reading Location ID and State: [facility] / [place] Tel [phone], Service support , N.B. : The above Results were Read Back by Abdi Burkett DO to keshva Serrano MD, and understanding confirmed on 03/02/2023 16:42:29 (ET). ADDENDUM: 03/02/23 1652 IMPRESSION: Normal unenhanced CT scan of the brain. N.B. : The above Results were Read Back by Abdi Burkett DO to keshav Serrano MD, and understanding confirmed on 03/02/2023 16:42:29 (ET). Electronically Signed: Abdi Burkett DO at 16:44 EDT , Chest X-Ray 03/02/23 15:30 IMPRESSION: Hyperinflation. No acute abnormality is seen. Electronically Signed: Devante Tapia MD at 15:46 EDT , Lumbar Spine MRI 03/02/23 18:43 IMPRESSION: Small radial annular tear at L4-5. No focal disc herniation or significant lumbar stenosis. Electronically Signed: Mal Sharma MD at 21:30 EDT Reading Location ID and State: [facility] / [place] Tel , Service support , Brain MRI 03/02/23 19:13 IMPRESSION: No intracranial hemorrhage, acute infarct, or space occupying lesion seen on this noncontrast MRI of the brain. Electronically Signed: Mal Sharma MD at 21:49 EDT Reading Location ID and State: [facility] / [place] Tel , Service support , D/C Instructions Discharge Diet: No restrictions Discharge Activity: Return to Normal Activity Call your doctor if you observe: Fever of 101 or Higher, Shortness of breath, Fainting spells and Chest pain Meaningful Use Info Meaningful Use Diagnoses (Choose all that apply): None applicable Discharge Plan Admission Admit Date/Time: 03/02/23 17:04 Attending Provider: Jonah Padilla Primary Care Provider: Care Physician,No Primary Consulting Providers: Kait Kovacs Discharge Orders/Prescriptions Prescriptions: New aspirin 81 mg Tablet,Chewable 81 mg PO BREAKFAST Qty: 60 0RF Continued amlodipine 10 mg Tablet 10 mg PO DAILY Qty: 60 0RF valsartan 160 MG tablet 320 mg PO DAILY Qty: 120 0RF Referrals / Follow Up: Care Physician,No Primary [Primary Care Provider] - Anais Hyatt 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
[2023-03-03 08:14] VITALS: O2SAT 98
[2023-03-03 08:33] LABS: Hemoglobin A1c 5.3 % (3.8-5.6)
[2023-03-03 08:57] VITALS: BP 150/109; PULSE 76; RESP 16; TEMP 36.9; O2SAT 97
[2023-03-03] MEDS: Thiamine Hydrochloride 100 MG Tablet PO (09:01)
[2023-03-03] MEDS: Aspirin 81 MG TAB.CHEW PO (09:01)
[2023-03-03] MEDS: Folic Acid 1 MG Tablet PO (09:01)
[2023-03-03] MEDS: Enoxaparin 40 MG/0.4 ML Syringe SC (09:01)
[2023-03-03 09:55] LABS: Osmolality, Serum 288 mOsm/KG (275-295)
[2023-03-03 12:36] VITALS: BP 150/109; PULSE 76; RESP 16; TEMP 36.9; O2SAT 97
[2023-03-03 12:43] VITALS: BMI 24.6
== END 2023-03-03 11:26 | disposition home or self-care (01) ==
LOC: ED 15:04 → PCU 17:30
PROVIDERS: Admitting Provider Family Medicine; Emergency Provider Student in an Organized Health Care Education/Training Program; Visit Provider Internal Medicine
DX: G45.9 Transient cerebral ischemic attack, unspecified (principal); E87.1 Hypo-osmolality and hyponatremia; F41.9 Anxiety disorder, unspecified; F10.10 Alcohol abuse, uncomplicated; E87.6 Hypokalemia; I10 Essential (primary) hypertension; R53.81 Other malaise; M62.81 Muscle weakness (generalized); E83.42 Hypomagnesemia; Z79.899 Other long term (current) drug therapy; Z90.5 Acquired absence of kidney; F32.A Depression, unspecified
CPT/HCPCS: 99285; 36415; 70496; 70498; 70551; 71045; 72148; 80048; 80053; 80061; 80076; 82570; 83036; 83735; 83930; 83935; 84100; 84300; 84443; 84484; 85025; 85610; 85730; 93005; 93306; 96360; 96361; 96372; 97161; 99221; J7030; Q9967; A4216; G0378

== ENCOUNTER → 2024-03-10 | Outpatient (CLI) | payer MEDICAID, SELFPAY ==
[2024-03-10 12:04] LABS: Absolute Lymphocyte Count 0.99 X10^3/uL (0.83-4.51); Absolute Neutrophil Count 4.9 X10^3/uL (2.0-7.7); Basophil# 0.07 X10^3/uL; Eosinophil# 0.32 X10^3/uL; Eosinophils% 4.7 % (0-5); Hematocrit 45.4 % (40-54); Lymphocyte # 0.99 X10^3/ul (0.83-4.51); Lymphocyte % 14.5 % (19-41); Mean Corpuscular Hgb 30.2 pg (27.0-32.0); Mean Corpuscular Volume 91.5 fL (80-94); Mean Platelet Vol. 9.4 fl (6.2-12.0); Monocyte# 0.54 X10^3/uL; Monocyte% 7.9 % (0-10); NRBC Flagged by Analyzer 0 % (0-5); Neutrophil # 4.86 X10^3/uL (2.7-7.7); Neutrophil % 71.3 % (47-70); Platelet Count 418 K/mm3 (150-450); RBC Distribution Width CV 12.7 % (11.6-14.6); RBC Distribution Width SD 41.8 fl (35.1-43.9); Red Blood Count 4.96 M/mm3 (4.6-6.2); White Blood Count 6.8 K/mm3 (4.4-11.0)
[2024-03-10 12:30] LABS: Microalbumin,Random Urine 31.5 mg/L (NO RANGE EST.)
[2024-03-10 12:32] LABS: ALB/GLOB Ratio 0.9 RATIO (0.9-2.4); AST(SGOT) 22 U/L (15-37); Alanine Aminotransfer ALT/SGPT 35 U/L (16-61); Albumin, Serum 3.9 g/dL (3.2-5.0); Alkaline Phosphatase 58 U/L (45-117); Anion Gap 3 (5-15); BUN 8 mg/dL (7-18); BUN/Creat Ratio 9.5 RATIO (10-20); Calcium,Total 9.6 mg/dL (8.5-10.1); Chloride 95 mmol/L (98-107); Cholesterol 262 mg/dL (200); Creatinine, Serum 0.84 mg/dL (0.70-1.30); EST Glomerular Filtration Rate 103 mL/min (>60); Est Glom Filt Rate - Afr Amer 125 mL/min (>60); Globulin 4.5 g/dL (2.2-4.2); Glucose 91 mg/dL (74-106); High Density Lipoprotein 111 mg/dL; Potassium 5.1 mmol/L (3.5-5.1); Protein, Total 8.4 g/dL (6.4-8.2); Sodium Level 127 mmol/L (136-145); Thyroid Stim Hormone (TSH) 1.66 uIU/mL (0.358-3.74); Triglycerides 84 mg/dL; Very Low Density Lipoprotein 17 mg/dL (5-40)
== END | disposition home or self-care (01) ==
LOC: BIMLAB 10:02
PROVIDERS: PCP Nurse Practitioner; Referring Provider Nurse Practitioner; Visit Provider Nurse Practitioner
DX: I10 Essential (primary) hypertension (principal)
CPT/HCPCS: 36415; 80053; 80061; 82043; 84443; 85025

== ENCOUNTER 2024-10-03 13:37 | Emergency (ER) | payer OTHER, SELFPAY ==
[2024-10-03 13:38] VITALS: BP 124/87; PULSE 103; RESP 18; TEMP 36.6; O2SAT 100; BMI 23.6
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
== END 2024-10-03 15:09 | disposition home or self-care (01) ==
LOC: ED 14:49
PROVIDERS: Emergency Provider Emergency Medicine; PCP Nurse Practitioner; Referring Provider Emergency Medicine; Visit Provider Emergency Medicine
DX: S43.401A Unspecified sprain of right shoulder joint, initial encounter (principal); S20.20XA Contusion of thorax, unspecified, initial encounter; I10 Essential (primary) hypertension; V89.0XXA Person injured in unspecified motor-vehicle accident, nontraffic, initial encounter; Y92.89 Other specified places as the place of occurrence of the external cause; Z79.82 Long term (current) use of aspirin; Z79.899 Other long term (current) drug therapy; F17.210 Nicotine dependence, cigarettes, uncomplicated; F17.290 Nicotine dependence, other tobacco product, uncomplicated
CPT/HCPCS: 71101; 73030; 99282